=== PATIENT | female | born 1975 | race Caucasian/White ===

== ENCOUNTER 2018-07-20 07:41 | Day surgery (SDC) | payer OTHER ==
[~2018-07-20] VITALS: Ht 165.1 cm; Wt 104.3 kg
[2018-07-20 07:57] VITALS: BP 124/76
[2018-07-20 12:32] VITALS: BP 122/74
== END 2018-07-20 12:25 | disposition home or self-care (01) ==
LOC: DS 07:41 → OR 08:30 → DS 08:30
PROVIDERS: Obstetrics & Gynecology
PROC: 0UJD8ZZ Inspection of Uterus and Cervix, Via Natural or Artificial Opening Endoscopic (ICD-10-PCS; 2018-07-20)
PROC: 0UDB7ZZ Extraction of Endometrium, Via Natural or Artificial Opening (ICD-10-PCS; principal; 2018-07-20 08:30)
DX: N92.1 Excessive and frequent menstruation with irregular cycle (principal)
CPT/HCPCS: J1170; J2250; J2405; J2704; J7030; J7120